=== PATIENT | female | born 1945 | race Caucasian/White ===

== ENCOUNTER 2017-07-28 19:59 | Emergency (ER) | payer OTHER ==
[~2017-07-28] VITALS: Ht 162.6 cm; Wt 75.8 kg
[~2017-07-28 19:59] MED LIST: CELEXA10 MG; DAILY MULTIVIT1 EAC1 PO; IMODIUM ADVANC1 EAC1 PO; NAPROSYN500 MG PO; PHENERGAN 25 MG25 MG PO; PRAVACHOL20 MG; RELAFEN500 MG PO; VALIUM5 MG PO
[2017-07-28] MEDS ORDERED: IMBRUVICA140 MG PO (20:07)
[2017-07-28] MEDS ORDERED: PRIMIDONE50 MG PO (20:07)
[2017-07-28] MEDS ORDERED: SYNTHROID50 MCG PO (20:08)
[2017-07-28] MEDS ORDERED: VIBRAMYCIN 100100 M2 PO (21:00)
[2017-07-28 21:10] VITALS: BP 131/64
== END 2017-07-28 21:12 | disposition home or self-care (01) ==
LOC: ER 19:59
DX: S01.21XA Laceration without foreign body of nose, initial encounter (principal); S40.022A Contusion of left upper arm, initial encounter; S40.021A Contusion of right upper arm, initial encounter; C85.90 Non-Hodgkin lymphoma, unspecified, unspecified site; M19.90 Unspecified osteoarthritis, unspecified site; Z88.0 Allergy status to penicillin; Z88.1 Allergy status to other antibiotic agents; Z88.2 Allergy status to sulfonamides; W19.XXXA Unspecified fall, initial encounter; Y93.89 Activity, other specified; Y92.89 Other specified places as the place of occurrence of the external cause; Y99.8 Other external cause status

== ENCOUNTER 2018-04-30 11:18 | Inpatient (IN) | payer OTHER ==
[~2018-04-30] VITALS: Ht 162.6 cm; Wt 78.9 kg
--- NOTE | ~2018-04-30 | 2DMMODE ---
[facility] [address] [place] [address] 2 D/M-MODE ECHOCARDIOGRAM Name: ALICIA CONWAY Room #: 353-P [facility] IN .R.#: [id number] Admission: 04/30/18 Attend Phys: Alton Saab MD Discharge: Date of : 45 Date of Service: 05/01/18 1151 Report #: [id number] THIS REPORT FOR: //name// APPROVED REPORT Study performed: 05/01/2018 09:15:33 EXAM: Comprehensive 2D, Doppler, and color-flow Echocardiogram Patient Location: Echo lab Room #: [facility] Status: routine BSA: 1.84 HR: 51 bpm BP: 127/58 mmHg Other Information Study Quality: Adequate Indications Bradycardia Syncope 2D Dimensions RVDd: 27.13 mm LVEF(%): 66.41 (>50%) IVSd: 9.43 (7-11mm) LVOT Diam: 18.90 (18-24mm) LVDd: 51.15 mm PWd: 9.53 (7-11mm) LVDs: 32.30 (25-40mm) Aortic Root: 28.40 mm IVC: 7.00 mm Velazquez's LVEF: 66.41 % Volumes Left Atrial Volume (Systole) Single Plane 4CH: 43.01 mL Single Plane 2CH: 26.90 mL LA ESV Index: 20.00 mL/m2 Aortic Valve AoV Peak Jayden.: 1.54 m/s AO Peak Gr.: 9.46 mmHg LVOT Max P.07 mmHg LVOT Max V: 1.13 m/s ANGELICA Vmax: 2.05 cm2 Mitral Valve E/A Ratio: 1.4 MV Decel. Time: 216.11 ms [facility] [address] [place] [address] 2 D/M-MODE ECHOCARDIOGRAM Name: ALICIA CONWAY Room #: 353-P [facility] IN ..#: [id number] Admission: 04/30/18 Attend Phys: Alton Saab MD Discharge: Date of : 45 Date of Service: 05/01/18 1151 Report #: [id number] MV E Max Jayden.: 0.88 m/s MV A Jayden.: 0.65 m/s MV PHT: 62.67 ms IVRT: 92.27 ms Pulmonary Valve PV Peak Jayden.: 0.81 m/s PV Peak Gr.: 2.63 mmHg Pulmonary Vein P Vein S: 0.57 m/s P Vein A: 0.28 m/s P Vein D: 0.42 m/s P Vein A Dur.: 101.5 msec P Vein S/D Ratio: 1.36 Tricuspid Valve TR Peak Jayden.: 2.78 m/s RAP Estimate: 5.00 mmHg TR Peak Gr.: 30.92 mmHg PA Pressure: 36.00 mmHg Left Ventricle The left ventricle is normal size. There is normal LV segmental wall motion. There is normal left ventricular wall thickness. The left ventricular systolic function is normal. The left ventricular ejection fraction is within the normal range. LVEF is 55-60%. Moderate diastolic dysfunction is present (pseudonormal filling). Right Ventricle The right ventricle is normal size. The right ventricular systolic function is normal. Atria The left atrium size is normal. The right atrium size is normal. Aortic Valve The aortic valve is normal in structure. No aortic regurgitation is present. There is no aortic valvular stenosis. Mitral Valve Moderate mitral annular calcification Trace mitral regurgitation. No evidence of mitral valve stenosis. Tricuspid Valve The tricuspid valve is normal in structure. Trace tricuspid regurgitation. PAP is estimated at [address] [address] 2 D/M-MODE ECHOCARDIOGRAM Name: ALICIA CONWAY Room #: 353-P [facility] IN [facility]#: [id number] Admission: 04/30/18 Attend Phys: Alton Saab MD Discharge: Date of : 45 Date of Service: 05/01/18 1151 Report #: [id number] Pulmonic Valve Pulmonic valve is not well visualized. Trace to mild pulmonic regurgitation. Great Vessels The aortic root is normal in size. IVC is normal in size and collapses >50% with inspiration. Pericardium There is no pericardial effusion. <Conclusion> The left ventricular systolic function is normal. There is normal LV segmental wall motion. LVEF 55-60%. The aortic valve is normal in structure. No aortic regurgitation or stenosis Moderate mitral annular calcification Trace mitral regurgitation. Trace tricuspid regurgitation. Pulomonary artery pressure estimated at 36 mmHg. There is no pericardial effusion. <ELECTRONICALLY SIGNED> By: Musa Bucio MD, FACC 05/01/18 1151 1151 1151 Musa Bucio MD, FACC /INF
--- NOTE | ~2018-04-30 | EKG ---
[address] [employer] [address] ELECTROCARDIOGRAM REPORT Name: ALICIA CONWAY Room #: 353-P ADM IN M.R.#: [id number] Admission: 04/30/18 Attend Phys: Alton Saab MD Discharge: Date of : 45 Report #: [id number] THIS REPORT FOR: //name// [facility] Test Date: 2018-05-01 Test Time: 08:04:58 Pat Name: ALICIA CONWAY Department: Room: 353 P Gender: F Classified Ad Taker: SEDRICK : 1945 Requested By: Musa Bucio Order Number: [id number] MD: Musa Bucio Measurements Intervals [place] Rate: 53 P: 67 PA: 159 QRS: 15 QRSD: 92 T: 12 QT: 464 QTc: 436 Interpretive Statements Sinus bradycardia Low voltage, extremity leads Compared to ECG 04/30/2018 11:34:53 No significant change was found Electronically Signed On 05-01-2018 9:15:33 CDT by Musa Bucio [email or web address] <ELECTRONICALLY SIGNED> By: Musa Bucio MD, [facility] 05/01/18 0915 3 3 Musa Bucio MD, [facility] /EPI
--- NOTE | ~2018-04-30 | EKG ---
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
--- NOTE | ~2018-04-30 | EXE ---
[facility] [address] [place] [address] STRESS ECHOCARDIOGRAM Name: ZORAIDAALICIA Room #: 353-P [facility] IN .R.#: [id number] Admission: 04/30/18 Attend Phys: Alton Saab MD Discharge: Date of : 45 Date of Service: 05/01/18 1210 Report #: [id number] THIS REPORT FOR: //name// APPROVED REPORT Study performed: 05/01/2018 09:57:16 Exam: Stress Echocardiogram Indication: Syncope, bradycardia Patient Location: Echo lab Stress Nurse: Zoya Gonzalez RN Room #: 353 Status: routine Ht: 5 ft 4 in HR: 51 bpm BP: 127/58 mmHg Rhythm: Bradycardia Medical History Medical History: Hyperlipidemia Cardiac Risk Factors: Hyperlipidemia Procedure The patient underwent an Exercise Stress Test using the Rohan Protocol. Blood pressure, heart rate, and EKG were monitored. An Echocardiogram was performed by field operations technician in four stages in quad fashion. At peak stress, four selected images were obtained and placed side by side with resting images for comparison. Stress Test Details Stress Test: Exercise stress testing was performed using a Rohan protocol. HR Resting HR: 54 bpm Max Heart Rate (APMHR): 148 bpm Max HR Achieved: 111 bpm Target HR (85% APMHR): 125 bpm % of APMHR: 75 Recovery HR: 58 bpm HR response to stress: Normal HR response to stress BP Resting BP: 127/58 mmHg Max BP: 142/70 mmHg Recovery BP: 126/68 mmHg ECG [facility] [address] [place] [place] [address] STRESS ECHOCARDIOGRAM Name: BRIDGET CONWAYHUGO Pérez Room #: 353-P [facility] IN [facility]#: [id number] Admission: 04/30/18 Attend Phys: Alton Saab MD Discharge: Date of : 45 Date of Service: 05/01/18 1210 Report #: [id number] Resting ECG: Sinus Bradycardia Stress ECG: Sinus Rhythm ST Change: Normal Maximum ST Deviation: 0 mm Arrhythmia: None Recovery ECG: Sinus Rhythm Recovery ST Change: Normal Recovery ST Deviation: 0 mm Recovery Arrhythmia: None Clinical Reason for Termination: Maximal effort, Dizziness Stress Symptoms: Leg Fatigue, Weakness Exercise duration: 4 min 36 sec Highest Stage Achieved: Stage 2: 2.5 mph at 12% grade. Exercise capacity: 7.00 METs Angina Score: None Stress ECG Conclusion ECG: Non-ischemic Clinical: Non-ischemic Caceres Treadmill Score is 4.0 which is Moderate risk. Pre-Stress Echo The resting Echocardiogram showed normal left ventricular contractility with an estimated Ejection Fraction of about 55-60%. Post-Stress Echo The stress Echocardiogram showed normal left ventricular contractility with an estimated Ejection Fraction of about 65-70%. Conclusion Clinical Response: Non-ischemic Exercise Capacity: Below Average Stress ECG Response: Non-ischemic Stress Echo Images: Non-ischemic Normal stress echocardiogram with submaximal exercise stress. Other Information Study Quality: Adequate Technically limited study due to patient unable to reach max heart rate. [facility] [address] [place] [address] STRESS ECHOCARDIOGRAM Name: ALICIA CONWAY Elisa Room #: 353-P [facility] IN ..#: [id number] Admission: 04/30/18 Attend Phys: Alton Saab MD Discharge: Date of : 45 Date of Service: 05/01/181209 Report #: [id number] <Conclusion> Normal stress echocardiogram with submaximal exercise stress. <ELECTRONICALLY SIGNED> By: Musa Bucio MD, FACC 05/01/181209 09 09 Musa Bucio MD, FACC /INF
--- NOTE | ~2018-04-30 | HC ---
[facility] [place] [address] CONSULTATION Name: ALICIA CONWAY Room #: 353-P [facility] IN .R.#: [id number] Admission: 04/30/18 Attend Phys: Alton Saab MD Discharge: Date of : 45 Report #: [id number] THIS REPORT FOR: //name// CC: Alton BURNETT REASON FOR CONSULTATION: Syncope. HISTORY OF PRESENT ILLNESS: The patient is a 72-year-old woman with history of follicular non-Hodgkin's lymphoma diagnosed in 1997. Her history is otherwise fairly unremarkable. For the past 2 months, she has had exertional breathlessness with minimal activities such as carrying groceries from her car into the house. She denies orthopnea or paroxysmal nocturnal dyspnea. Today while standing at synagogue, she became lightheaded. She sat down and became profusely diaphoretic and near syncopal. She was laid flat. Her reports that she did not lose consciousness, although when she aroused there are people standing around her with cold compresses on her forehead. When she presented in the Emergency Department, she was bradycardic, sinus mechanism at 45. Hemodynamics were stable. She had one syncopal episode many years ago in the setting of influenza. She denies chest heaviness or pressure. No history of palpitations. ALLERGIES: Include CEPHALEXIN, PENICILLIN, SULFA and DEMEROL. She has intolerance to PREDNISONE. MEDICATIONS: Include primidone 50 mg daily, levothyroxine 50 mcg daily, citalopram and pravastatin 20 mg daily. PAST MEDICAL HISTORY: Her past history and medical records have been reviewed and include a history of non-Hodgkin's lymphoma originally treated with CHOP chemotherapy in 1997. She had recurrence in August of 2016 and received Rituxan and she had another recurrence in December of 2016 and she received another chemotherapy agent, which also became ineffective. She has a history of a ganglion cyst excision, tubal with exploratory surgery and hypothyroidism. SOCIAL HISTORY: She is . She is a nonsmoker and nondrinker. FAMILY HISTORY: Unremarkable for premature coronary disease. REVIEW OF SYSTEMS: All systems negative except as that noted above. PHYSICAL EXAMINATION: GENERAL: Reveals a pleasant woman, in no distress. VITAL SIGNS: Blood pressure is 128/65, heart rate of 53 and regular, she is afebrile, 5 feet 4 inches tall and 174 pounds. HEENT: There are neither xanthelasma, subcutaneous xanthomata, oral mucosa or [facility] [address] [place] [address] CONSULTATION Name: ALICIA CONWAY Room #: 353-P [facility] IN [facility]#: [id number] Admission: 04/30/18 Attend Phys: Alton Saab MD Discharge: Date of : 45 Report #: [id number] digital cyanosis or kyphoscoliosis present. CHEST: Clear to auscultation and percussion. CARDIOVASCULAR: Reveals regular rate and rhythm with normal S1 and S2. No murmurs or rubs. ABDOMEN: Soft and nontender. EXTREMITIES: Without cyanosis, clubbing or edema. Radial pulses are 2+. NEUROLOGICAL: She is alert with a nonfocal exam. LABORATORY DATA: Sodium 140, potassium 3.5 and creatinine 1.1. Troponin of 0. White count 6.3, hemoglobin 12, hematocrit 36 and platelet count 161. Thyroid function studies are normal. RADIOLOGICAL DATA: Chest x-ray is normal. Head CT is normal. EKG, sinus bradycardia with poor R-wave progression. IMPRESSION: 1. Near syncope. 2. Bradycardia, possibly contributing to near syncope above. 3. Follicular non-Hodgkin's lymphoma. 4. Hypothyroidism, on replacement. RECOMMENDATIONS: 1. Echocardiogram with Doppler, stress testing. 2. Electrophysiologic evaluation. I suspect that her symptoms were on the basis of symptomatic bradycardia, permanent pacing may be needed. I have discussed these issues with the patient and her . Alternatively, this could have been a neurocardiogenic process. Thank you for asking me to participate in her care. <ELECTRONICALLY SIGNED> By: Musa Bucio MD, [facility] 05/01/18 0902 180 022 Musa Bucio MD, [facility] /nt
--- NOTE | ~2018-04-30 | HC ---
[facility] [address] CONSULTATION Name: ALICIA CONWAY Room #: 353-P [facility] IN ..#: [id number] Admission: 04/30/18 Attend Phys: Alton Saab MD Discharge: 05/01/18 Date of : 45 Report #: [id number] THIS REPORT FOR: //name// CC: Alton BURNETT ELECTROPHYSIOLOGY CONSULTATION REASON FOR CONSULTATION: Near syncope and bradycardia. HISTORY OF PRESENT ILLNESS: The patient is a 72-year-old with no cardiac history who was at synagogue yesterday and was feeling lightheaded. She then decided that she needed to go home, but before she could she got more lightheaded, diaphoretic and had to lie down and nearly passed out, but did not truly have a syncopal episode. She was brought to the ER for further evaluation and a resting EKG showed that she had sinus bradycardia in the 50s. She denies any problems with chest pain or chest tightness. She denies any PND or orthopnea. She denies any recent syncopal episodes other than several years ago, she had nausea, vomiting, diarrhea and then passed out and she was seen in the Emergency Room and diagnosed with dehydration. REVIEW OF SYSTEMS: A 12-point review of systems was performed and is negative other than what I mentioned above. PAST MEDICAL HISTORY: As above. SOCIAL HISTORY: Does not smoke. FAMILY HISTORY: Noncontributory. ALLERGIES: PENICILLIN AND MULTIPLE ANTIBIOTICS. MEDICATIONS: Have been reviewed. PHYSICAL EXAMINATION: VITAL SIGNS: Temperature is 36.6, pulse 61, respiratory rate 14, blood pressure 146/74 and sat 98%. GENERAL: She is in no acute distress. HEENT: Oropharynx is clear. NECK: Supple with no thyromegaly. CARDIOVASCULAR: Heart is regular rate and rhythm with no murmurs, rubs or gallops. LUNGS: Clear to auscultation bilaterally. ABDOMEN: Soft, nontender and nondistended with no hepatosplenomegaly. EXTREMITIES: Shows no clubbing, cyanosis or edema. NEUROLOGIC: Cranial nerves 2-12 are intact. [facility] [address] [place] [address] CONSULTATION Name: ALICIA CONWAY Room #: 353-P [facility] IN [facility].#: [id number] Admission: 04/30/18 Attend Phys: Alton Saab MD Discharge: 05/01/18 Date of : 45 Report #: [id number] LABORATORY DATA: Creatinine is 1.1. CBC is essentially unremarkable. Troponin was negative. Chest x-ray showed no acute process. Telemetry showed periods of sinus bradycardia while sleeping. CT head showed no acute process and she had a stress echo today, which demonstrates that she was able to get her maximal heart rate to 110 beats per minute and she had normal LV size and function with no evidence of ischemia. ASSESSMENT AND PLAN: 1. Sinus bradycardia. 2. Presyncope/syncope. In summary, the patient is a 72-year-old who presented with a near syncopal episode. There was some sinus bradycardia noted. It is unclear if this truly is an issue. The fact that she was able to augment her heart rate on her treadmill stress test makes me think that a pacemaker is currently not warranted. I have recommended that she follow up with Dr. Bucio as an outpatient and to have her undergo monitoring for a month. If this shows no further episodes, then we could consider implantation of an implantable loop recorder given her prior syncopal episodes in the past. If any of these monitors reveals any underlying arrhythmias, I will be happy to see her again for a possible pacemaker implantation. By: 1545 0116 Nikhil Almazan MD /nt
[~2018-04-30 11:18] MED LIST changes: +IMBRUVICA140 MG PO; +PRIMIDONE50 MG PO; +SYNTHROID50 MCG PO; +VIBRAMYCIN 100100 M2 PO
[2018-04-30 11:19] VITALS: BP 110/26
[2018-04-30 11:51] LABS: ABSOLUTE NEUTROPHILS 3.6 thou/uL (1.4-8.2); BASOPHILS 0.7 % (0.0-2.0); EOSINOPHILS 3.1 % (0.0-3.0); HEMATOCRIT 36.8 % (37.0-47.0); HEMOGLOBIN 12.7 gm/dL (12.0-15.0); LYMPHOCYTES 29.4 % (24.0-44.0); MCH 30.6 pg (26.0-34.0); MCHC 34.6 g/dL (28.0-37.0); MCV 88.5 fL (80.0-100.0); PLATELET COUNT 161 thou/uL (150-400); POLYS 57.8 % (36.0-66.0); RBC 4.16 mil/uL (4.20-5.00); RDW 14.5 % (10.5-14.5); WBC 6.3 thou/uL (4.0-11.0)
[2018-04-30 11:52] LABS: ANION GAP 8 mmol/L (7-16); BUN 23 mg/dL (7-18); CALCIUM 8.8 mg/dL (8.5-10.1); CHLORIDE 104 mmol/L (98-107); CO2 28 mmol/L (21-32); CREATININE 1.1 mg/dL (0.6-1.0); GLUCOSE 119 mg/dL (74-106); POTASSIUM 3.5 mmol/L (3.5-5.1); SODIUM 140 mmol/L (136-145)
[2018-04-30 12:00] LABS: ALBUMIN 3.4 g/dL (3.4-5.0); SGOT 23 U/L (15-37); SGPT 33 U/L (30-65); TOTAL BILIRUBIN 0.3 mg/dL (<0.1-1.0); TOTAL PROTEIN 6.1 g/dL (6.4-8.2); TROPONIN-I <0.06 ng/mL (<0.06)
[2018-04-30 12:24] LABS: URINE BILIRUBIN NEGATIVE (Negative); URINE BLOOD NEGATIVE (Negative); URINE CLARITY CLEAR; URINE COLOR YELLOW; URINE GLUCOSE-RANDOM* NEGATIVE (Negative); URINE KETONES NEGATIVE (Negative); URINE PROTEIN (DIPSTICK) TRACE (Negative); URINE SPECIFIC GRAVITY 1.015 (1.005-1.035); URINE UROBILINOGEN 0.2 E.U./dl (0.2-1.0)
[2018-04-30 12:36] LABS: URINE LEUKOCYTES-REFLEX 2+ (Negative); URINE NITRITE-REFLEX POSITIVE (Negative)
[2018-04-30 12:51] LABS: SQUAMOUS 0-3 Few /LPF (0-3); URINE RBC 0-2 Rare /HPF (0-2); URINE WBC-REFLEX >25 Many /HPF (0-5)
[2018-04-30 12:52] LABS: AMORPHOUS PHOSPHATES Moderate /LPF (None Seen); HYALINE CASTS 0-3 Few /LPF (None Seen)
[2018-04-30 13:37] VITALS: BP 121/55
[2018-04-30 13:45] VITALS: BP 140/66
[2018-04-30 15:35] VITALS: BP 128/65
[2018-04-30 21:10] VITALS: BP 110/59
[2018-04-30 23:30] VITALS: BP 132/66
[2018-05-01 04:34] VITALS: BP 132/71
[2018-05-01 06:40] LABS: HEMATOCRIT 35.5 % (37.0-47.0); HEMOGLOBIN 12.2 gm/dL (12.0-15.0); MCH 30.6 pg (26.0-34.0); MCHC 34.3 g/dL (28.0-37.0); MCV 89.1 fL (80.0-100.0); RBC 3.98 mil/uL (4.20-5.00); RDW 14.7 % (10.5-14.5); WBC 5.4 thou/uL (4.0-11.0)
[2018-05-01 07:04] LABS: CALCIUM 8.7 mg/dL (8.5-10.1); CREATININE 1.1 mg/dL (0.6-1.0); POTASSIUM 4.2 mmol/L (3.5-5.1)
[2018-05-01 07:47] VITALS: BP 127/58
[2018-05-01 15:35] VITALS: BP 125/62
[2018-05-01 15:36] VITALS: BP 139/79
[2018-05-01 15:39] VITALS: BP 146/74
[2018-05-01] MEDS ORDERED: KEFLEX500 M1 PO (16:32)
[2018-05-01 16:44] VITALS: BP 146/74
== END 2018-05-01 18:07 | disposition home or self-care (01) | DRG 309 ==
LOC: ER 11:18 → 3W 13:17 → EROBS 13:17 → 3W 15:16 → ENTRNSPT 05-01 18:05 → 3W 05-01 18:07
PROVIDERS: Hospitalist; Student in an Organized Health Care Education/Training Program
DX: R00.1 Bradycardia, unspecified (principal); N39.0 Urinary tract infection, site not specified; E03.9 Hypothyroidism, unspecified; I10 Essential (primary) hypertension; F32.9 Major depressive disorder, single episode, unspecified; M19.90 Unspecified osteoarthritis, unspecified site; Z85.72 Personal history of non-Hodgkin lymphomas; Z79.899 Other long term (current) drug therapy; Z88.0 Allergy status to penicillin; Z88.2 Allergy status to sulfonamides; Z88.8 Allergy status to other drugs, medicaments and biological substances
CPT/HCPCS: 10879

== ENCOUNTER → 2018-12-06 | Outpatient (CLI) | payer OTHER ==
[~2018-12-06] MED LIST changes: +KEFLEX500 M1 PO
--- NOTE | ~2018-12-06 | CATHLAB ---
[facility] [address] [place] [address] INVASIVE PROCEDURE REPORT Name: ALICIA CONWAY Room #: REG [facility]#: [id number] ������������� Admission: 12/06/18 ������������� Attend Phys: Musa Bucio, Discharge: ��� ������������� ��� Date of : 45 Date of Service: 12/06/18 0858 �� Report #: [id number] �������� ��������������������������������������������[id number] THIS REPORT FOR: //name// CC: Musa Bucio FAM unknown BOO BURNETT DATE OF SERVICE: 12/06/2018 IMPLANTABLE LOOP RECORDER: INDICATION: Recurrent syncope, palpitations. DESCRIPTION OF PROCEDURE: The potential benefits and risks of the procedure were discussed at length with the patient who understood. Full written and informed consent was obtained. The patient was brought into the catheterization holding area where her left anterior chest was prepped and draped in a sterile fashion. A 1 cm incision was made over the left fourth intercostal space with placement of a [employer] Confirm Rx [id number] loop recorder, serial #[id number]. The small incision was closed with a single bioabsorbable stitch. A dressing was placed. She tolerated the procedure well. Interrogation of the device demonstrated excellent thresholds. IMPRESSION: Successful [employer] implantable loop recorder for history of recurrent syncope. ��������������������������������������������� ���������������������������������������� By: ��������������������������������������������� 0858 2219 Musa Bucio MD, FACC /nt
== END | disposition home or self-care (01) ==
LOC: CATH 11-21 07:07
DX: R55 Syncope and collapse (principal); R00.2 Palpitations

== ENCOUNTER → 2021-03-02 | Outpatient (CLI) | payer OTHER | LOC: SJCVC 13:00 | PROVIDERS: ATTEND Internal Medicine | DX: R55 Syncope and collapse (principal); E78.5 Hyperlipidemia, unspecified; C82.90 Follicular lymphoma, unspecified, unspecified site; F41.9 Anxiety disorder, unspecified; F32.9 Major depressive disorder, single episode, unspecified; E03.9 Hypothyroidism, unspecified; E78.00 Pure hypercholesterolemia, unspecified; Z72.89 Other problems related to lifestyle; Z79.899 Other long term (current) drug therapy; Z88.0 Allergy status to penicillin; Z88.1 Allergy status to other antibiotic agents; Z88.5 Allergy status to narcotic agent; Z88.2 Allergy status to sulfonamides; Z88.8 Allergy status to other drugs, medicaments and biological substances ==

== ENCOUNTER → 2021-03-27 | Outpatient (CLI) | payer OTHER ==
[2021-03-27 08:50] VITALS: BP 135/71
--- NOTE | 2021-03-28 19:08 | CATHLAB ---
[facility] [place] [address] INVASIVE PROCEDURE REPORT Name: ALICIA CONWAY Room #: REG [facility].#: [id number] Admission: 03/27/21 Attend Phys: Musa Bucio MD, Discharge: Date of : 45 Report #: [id number] THIS REPORT FOR: cc: FAM - Family physician unknown FAM - Family physician unknown Musa Bucio MD [facility] ~ DATE OF SERVICE: 03/27/2021 PROCEDURE: LINQ removal. INDICATION: End of life. DESCRIPTION OF PROCEDURE: The left anterior chest was prepped and draped in a sterile fashion. 1% Xylocaine was used as local anesthetic. A 0.5 cm incision was made over the LINQ loop recorder, which was then removed through the incision, closed with a bioabsorbable stitch. The lesion was covered with a sterile Band-Aid. She tolerated the procedure well and was discharged to home. <ELECTRONICALLY SIGNED> By: Musa Bucio MD, FACC 03/28/21 1908 1529 2343 Musa Bucio MD, FACC /nt
== END | disposition home or self-care (01) ==
LOC: CATH 07:53
PROVIDERS: ATTEND Internal Medicine
DX: Z45.09 Encounter for adjustment and management of other cardiac device (principal); Z88.0 Allergy status to penicillin; Z88.2 Allergy status to sulfonamides; Z88.8 Allergy status to other drugs, medicaments and biological substances

== ENCOUNTER 2021-08-12 00:34 | Emergency (ER) | payer OTHER ==
[~2021-08-12] VITALS: Ht 165.1 cm; Wt 74.8 kg
--- NOTE | ~2021-08-12 | EMS ---
[address] [address] EMS Patient Care Report Name: ALICIA CONWAY Room #: [facility] M.R.#: [id number] Admission: Attend Phys: Discharge: Date of : 45 Report #: [id number] THIS REPORT FOR: //name// Report Transmitted: 08/12/2021 01:00 EMS Care Summary [place], [place]/[facility] Incident [id number] @ 08/11/2021 23:45 Incident Location [address] [place] [address] Patient ALICIA VIERA Female, 75 Years 1945 Patient Address [address] [place] [address] Patient History Other,Hyperlipidemia,Bronchitis Chronic,Depression,Hypothyroidism,Tremors, Patient Allergies Penicillin allergy,Sulfa,Keflex,Demerol, Chief Complaint cough Disposition Transported No Lights/[place] Reason Breathing Problem Transported To [facility] Narrative pt found lying on bedroom floor, a&o, incontinent of urine. she states she was too weakn to be able to make it to door to unlock. pt c/o having cough, sore throat, low grade fever, weakness , dizziness and general body pain for past 48 hrs. pt has had Covid shots but not Flu shot. pt req transport to [facility]. pt to catrachita gum remover and carried out to cot. transport w/o change. report to staff on arrival. [address] [place] [address] EMS Patient Care Report Name: ALICIA CONWAY Room #: PRE M.R.#: [id number] Admission: Attend Phys: Discharge: Date of : 45 Report #: [id number] Initial Vitals @00:13P: 68,R: 18,BP: 124/63,Pain: 6/10,GCS: 15,Temp: 98.9F,SpO2: 93,Revised Trauma: 12, Assessments @00:01MENTAL:No Abnormalities,SKIN:Other,HEENT:Head/Face: Other,Neck/Airway: Other,LUNG SOUNDS:ABDOMEN:PELVIS//GI:Incontinence,EXTREMITIES:PULSE:NEURO: Impression Infectious Disease Procedures @00:01 ALS Assessment Response: Unchanged @00:10 Stretcher Response: Unchanged Timeline 23:44,Dispatch Notified 23:45,Dispatched 23:47,En Route 23:57,On Scene 00:01,At Patient 00:01,ALS Assessment,Response: Unchanged 00:10,Stretcher,Response: Unchanged 00:13,BP: 124/63 M,PULSE: 68,RR: 18 R,SPO2: 93 Ox,ETCO2: ,BG: ,PAIN: 6,GCS: 15, 00:15,Depart Scene 00:28,At Destination 00:48,Call Closed 23:44,Call Received Disclaimer v1.1 Copyright 2020 [employer] This EMS Care Summary contains data elements from the applicable legal record (which may be displayed differently). It is designed to provide pertinent information for the following purposes: continuity of care, clinical quality, and state data reporting. The complete legal record is available to ED staff and administrators of the receiving hospital in ES's Patient Tracker. All data is provided "as is."
[2021-08-12 01:55] LABS: ABSOLUTE NEUTROPHILS 4.1 thou/uL (1.4-8.2); BASOPHILS 0.3 % (0.0-2.0); EOSINOPHILS 1.1 % (0.0-3.0); HEMATOCRIT 40.8 % (37.0-47.0); HEMOGLOBIN 13.4 gm/dL (12.0-15.0); LYMPHOCYTES 10.2 % (24.0-44.0); MCH 29.9 pg (26.0-34.0); MCHC 32.9 g/dL (28.0-37.0); MONOCYTES 10.2 % (1.0-8.0); PLATELET COUNT 149 thou/uL (150-400); POLYS 78.2 % (36.0-66.0); RBC 4.48 mil/uL (4.20-5.00); RDW 13.2 % (10.5-14.5); WBC 5.2 thou/uL (4.0-11.0)
[2021-08-12 01:56] LABS: URINE BILIRUBIN NEGATIVE (Negative); URINE BLOOD NEGATIVE (Negative); URINE CLARITY CLEAR; URINE COLOR YELLOW; URINE GLUCOSE-RANDOM* NEGATIVE (Negative); URINE KETONES 1+ (Negative); URINE LEUKOCYTES-REFLEX NEGATIVE (Negative); URINE NITRITE-REFLEX NEGATIVE (Negative); URINE PROTEIN (DIPSTICK) NEGATIVE (Negative); URINE UROBILINOGEN 0.2 E.U./dl (0.2-1.0)
[2021-08-12 02:02] LABS: CALCIUM 9.1 mg/dL (8.5-10.1); CREATININE 1.1 mg/dL (0.6-1.0)
[2021-08-12 02:12] LABS: ALBUMIN 3.5 g/dL (3.4-5.0); TOTAL BILIRUBIN 0.3 mg/dL (0.2-1.0); TOTAL PROTEIN 7.3 g/dL (6.4-8.2)
[2021-08-12] MEDS ORDERED: TESSALON PERLE100 MG PO (03:36)
[2021-08-12] MEDS ORDERED: ZOFRAN ODT4 MG PO (03:36)
[2021-08-12 04:07] VITALS: BP 120/57
--- NOTE | 2021-08-12 08:52 | EKG ---
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: : 1945 Requested By: Naseem Herzog Order Number: [id number] MD: Musa Bucio Measurements Intervals [place] Rate: 69 P: 75 CA: 155 QRS: 8 QRSD: 98 T: 18 QT: 414 QTc: 444 Interpretive Statements Sinus rhythm Low voltage, extremity and precordial leads Compared to ECG 05/01/2018 08:04:58 Sinus bradycardia no longer present Electronically Signed On 08-12-2021 8:52:08 TERRAZZO FINISHER HELPER by Musa Bucio [email or web address] <ELECTRONICALLY SIGNED> By: Musa Bucio MD, [facility] 08/12/21 0852 012 0121 Musa Bucio MD, FACC /EPI
== END 2021-08-12 05:58 | disposition home or self-care (01) ==
LOC: ER 00:34
PROVIDERS: Emergency Medicine
DX: U07.1 COVID-19 (principal); M19.91 Primary osteoarthritis, unspecified site; Z79.891 Long term (current) use of opiate analgesic; Z79.899 Other long term (current) drug therapy; Z79.1 Long term (current) use of non-steroidal anti-inflammatories (NSAID); Z88.0 Allergy status to penicillin; Z88.1 Allergy status to other antibiotic agents; Z88.2 Allergy status to sulfonamides; Z88.8 Allergy status to other drugs, medicaments and biological substances

== ENCOUNTER 2021-08-17 12:18 | Inpatient (IN) | payer OTHER ==
[~2021-08-17] VITALS: Ht 152.4 cm; Wt 78.5 kg
--- NOTE | ~2021-08-17 | EMS ---
[address] [address] EMS Patient Care Report Name: ALICIA CONWAY Room #: 358-P ADM IN M.R.#: [id number] Admission: 08/17/21 Attend Phys: Akhil Melogza MD Discharge: Date of : 45 Report #: [id number] THIS REPORT FOR: //name// Report Transmitted: 08/21/2021 14:09 EMS Care Summary [place], [place]/[facility] Incident [id number] @ 08/17/2021 11:28 Incident Location [address] [place], [place] [id number] Patient ALICIA CONWAY Female, 76 Years 1945 Patient Address [address] [place], [place] [id number] Patient History None Reported, Patient Allergies No known allergies, Patient Medications None Reported, Chief Complaint respiratorry distress. Disposition Transported No Lights/[place] Dispatch Reason Sick Person Transported To [facility] Narrative Dispatched to an apartment community in regards to a respiratory distress. On arrival, I saw patient with the on scene fire crew. Initial assessment revealed that patient was A&Ox4 and did not appear to be in respiratory distress. Patient's chief complaint was general malaise and weakness. stated that [address] [address] EMS Patient Care Report Name: ALICIA CONWAY Room #: 358-P ADM IN [facility]#: [id number] Admission: 08/17/21 Attend Phys: Akhil Melgoza MD Discharge: Date of : 45 Report #: [id number] patient was fine before taking a shower earlier and during taking a shower she ended up on the floor in the bathroom and is unable to speak or move on her own. Patient was able to obey verbal commands but did not verbally respond. Spouse stated that she has had these episodes prior with various reasons given for this behavior. Spouse also stated that patient tested positive for Covid within the last 8 days. Physical assessment revealed that patient was pink warm and dry. Patient was assisted to our cot. Patient was secured and lifted into the ambulance. Treatment rendered was obtaining a complete set of baseline vital signs. Patient was transported to and radio report was given en route. Patient care was transferred on arrival. Initial Vitals @12:02P: 58,R: 16,BP: 121/72,Pain: 0/10,GCS: 11,Glucose: 138,SpO2: 92,Revised Trauma: 11,GA Suspected: false @12:05P: 16,R: 16,BP: 113/58,Pain: 0/10,GCS: 11,SpO2: 94,Revised Trauma: 11, Assessments @11:59MENTAL:Other,SKIN:HEENT:LUNG SOUNDS:ABDOMEN:PELVIS//GI:EXTREMITIES:PULSE:NEURO: Impression Acute Respiratory Distress (Dyspnea) Procedures @11:59 ALS Assessment Timeline :,Call Received 11:26,Dispatch Notified 11:28,Dispatched 11:28,En Route 11:51,On Scene 11:52,At Patient 11:58,Depart Scene 11:59,ALS Assessment, 12:02,BP: 121/72 M,PULSE: 58,RR: 16 R,SPO2: 92 Ox,ETCO2: ,B,PAIN: 0,GCS: 11, 12:05,BP: 113/58 M,PULSE: 16,RR: 16 R,SPO2: 94 Ox,ETCO2: ,BG: ,PAIN: 0,GCS: 11, 12:23,At Destination 12:23,Call Closed Disclaimer v1.1 Copyright 2020 [employer] This EMS Care Summary contains data elements from the applicable legal record (which may be displayed differently). It is designed to provide pertinent [address] [address] EMS Patient Care Report Name: ALICIA CONWAY Room #: 358-P ADM IN .R.#: [id number] Admission: 08/17/21 Attend Phys: Akhil Melgoza MD Discharge: Date of : 45 Report #: [id number] information for the following purposes: continuity of care, clinical quality, and state data reporting. The complete legal record is available to ED staff and administrators of the receiving hospital in ES's Patient Tracker. All data is provided "as is."
--- NOTE | ~2021-08-17 | HC ---
[facility] [place] [address] CONSULTATION Name: ALICIA CONWAY Room #: 170-10 ADM IN .R.#: [id number] Admission: 08/17/21 Attend Phys: Akhil Melgoza MD Discharge: Date of : 45 Report #: [id number] THIS REPORT FOR: cc: [facility] - Clinic physician unknown [facility] - Clinic physician unknown Manohar Wiseman MD ~ DATE OF SERVICE: 08/18/2021 HISTORY OF PRESENT ILLNESS: This is a 76-year-old female patient who was evaluated by me because the patient had an episode where she was fully conscious, but she will not talk. She was able to comprehend everything, but she just will not talk. I talked to nurse practitionerSara yesterday. I talked to Dr. Melgoza yesterday and today. I gave a call to the patient's daughter and subsequently was able to reach the patient's and I talked to them. The patient has had these episodes for some time. She basically stopped talking and after that, she started snoring. She had an episode 3 years ago. She has never fallen where she hurt herself. There is no tonic-clonic activity, does not look like that episodes are very frequently, but they do not know the frequency. She has not had any clearcut seizure activity. REVIEW OF SYSTEMS: Indicates the patient was diagnosed with COVID. Subsequently, she was going to have monoclonal antibodies, but then she was admitted here because of altered mental status. When she came here, she was evaluated by [facility], who recommended CT-angiogram of the head and neck as well as MRI. CT-angiogram of the head is unremarkable. MRI is still pending. She has been seen by other consultants for lymphoma. She does have some pancytopenia and she is being seen by Oncology. She has history of depression and she is also being seen by Psychiatry. This was a relevant 14-point review of systems. PAST MEDICAL HISTORY: Positive for these spells, which is going on for a long time. FAMILY HISTORY: Unremarkable. SOCIAL HISTORY: She has a supportive family and I talked to the patient's daughter as well as the patient's . PHYSICAL EXAMINATION: GENERAL: When I saw this patient, she was alert, responsive, able to follow simple and complex commands. Her mentation was back to her normal self. No meningeal sign. She moved all 4 extremities. Basically, she was back to her baseline. VITAL SIGNS: Blood pressure 119/57, respirations 16, pulse 53, temperature is 97.6. [place] [address] CONSULTATION Name: ALICIA CONWAY Room #: 170-10 ADM IN ..#: [id number] Admission: 08/17/21 Attend Phys: Akhil Melgoza MD Discharge: Date of : 45 Report #: [id number] LABORATORY DATA: White count is 3.3, platelet is down to 94. CT-angiogram is as described above. IMPRESSION AND PLAN: Not sure what these spells are. describes some spells, which can be cataplexy. I think the main thing we need to work her up is for the possibility of narcolepsy as well as the possibility of nonconvulsive seizure. We will await the MRI and once her COVID symptoms resolve or become better, we will set up that workup some time. If she has a sleep study, she should have one with sleep epilepsy montages. I discussed all of it with the patient. I spent more than 50 minutes of time taking care of this patient today and majority was spent counseling and coordinating. By: [id number] Manohar Wiseman MD /nt
--- NOTE | ~2021-08-17 | EEG ---
[facility] [place] [address] ELECTROENCEPHALOGRAM Name: ALICIA CONWAY Room #: 170-16 ADM IN M.R.#: [id number] Admission: 08/17/21 Attend Phys: Akhil Melgoza MD Discharge: Date of : 45 Report #: [id number] THIS REPORT FOR: //name// DATE OF SERVICE: 08/20/2021 This patient is being evaluated for the possibility of seizure. EEG was done by placing the electrode by standard 10-20 system of electrode placement. Both referential and sequential montages were used for recording. Background activity in this patient's EEG is about 11 Hz and 30 microvolt. The patient became drowsy that is associated with bilateral slowing. Photic stimulation is unremarkable. Throughout the record, no active epileptiform activity was noticed. IMPRESSION: This patient's EEG is unremarkable and does not demonstrate any active epileptiform activity. Thank you very much for this referral. By: [id number] Manohar Wiseman MD /nt
[~2021-08-17 12:18] MED LIST changes: +TESSALON PERLE100 MG PO; +ZOFRAN ODT4 MG PO
[2021-08-17 12:21] VITALS: BP 111/49
[2021-08-17 12:55] LABS: URINE BILIRUBIN NEGATIVE (Negative); URINE BLOOD NEGATIVE (Negative); URINE CLARITY CLEAR; URINE COLOR YELLOW; URINE GLUCOSE-RANDOM* NEGATIVE (Negative); URINE KETONES NEGATIVE (Negative); URINE LEUKOCYTES-REFLEX NEGATIVE (Negative); URINE NITRITE-REFLEX NEGATIVE (Negative); URINE PROTEIN (DIPSTICK) 2+ (Negative); URINE SPECIFIC GRAVITY >= 1.030 (1.005-1.035)
[2021-08-17 13:03] LABS: HEMOGLOBIN 11.7 gm/dL (12.0-15.0); MCH 29.4 pg (26.0-34.0); MCHC 32.6 g/dL (28.0-37.0); MCV 90.2 fL (80.0-100.0); PLATELET COUNT 96 thou/uL (150-400); RBC 3.99 mil/uL (4.20-5.00); RDW 12.9 % (10.5-14.5); WBC 2.8 thou/uL (4.0-11.0)
[2021-08-17 13:18] LABS: CALCIUM 8.4 mg/dL (8.5-10.1); POTASSIUM 3.5 mmol/L (3.5-5.1)
[2021-08-17 13:23] LABS: SQUAMOUS 0-3 Few /LPF (0-3); URINE RBC None Seen /HPF (NONE SEEN); URINE WBC-REFLEX 6-15 Few /HPF (0-5)
[2021-08-17 13:24] LABS: CRYSTALS None Seen /LPF (None Seen); HYALINE CASTS 0-3 Few /LPF (None Seen); MUCUS >6 Heavy strn/LPF (None Seen)
[2021-08-17 14:17] LABS: ALBUMIN 2.5 g/dL (3.4-5.0); DIRECT BILIRUBIN < 0.1 mg/dL (<0.1-0.2); SGOT 38 U/L (15-37); SGPT 35 U/L (30-65); TOTAL BILIRUBIN 0.2 mg/dL (0.2-1.0); TOTAL PROTEIN 5.3 g/dL (6.4-8.2)
[2021-08-17] MEDS ORDERED: ATORVASTATIN CA20 MG PO (14:29)
[2021-08-17 16:07] LABS: FOLIC ACID 55.6 ng/mL (8.6-58.9)
--- NOTE | 2021-08-17 17:22 | NUR ---
76 year old female presented to the ED on 08/16/21 per EMD as unresponsive noting had been seen on 08/12/21 in the ED diagnosed with COVID 19. NOTE per patient vaccinated in November of 2020 with Moderna. Patient lists daughter India Rodriguez at [phone] as her next of kin and is noted at alert and oriented now x4. CM will follow for discharge needs as they are identified with the care team along with therapy evaluations. CM will continue follow for discharge needs.
[2021-08-17 21:31] VITALS: BP 128/60
[2021-08-18 06:00] LABS: ABSOLUTE NEUTROPHILS 2.4 thou/uL (1.4-8.2); BASOPHILS 0.2 % (0.0-2.0); EOSINOPHILS 0.2 % (0.0-3.0); HEMATOCRIT 32.4 % (37.0-47.0); HEMOGLOBIN 10.9 gm/dL (12.0-15.0); LYMPHOCYTES 18.8 % (24.0-44.0); MCH 30.1 pg (26.0-34.0); MCHC 33.6 g/dL (28.0-37.0); MCV 89.7 fL (80.0-100.0); MONOCYTES 5.9 % (1.0-8.0); PLATELET COUNT 94 thou/uL (150-400); POLYS 74.9 % (36.0-66.0); RBC 3.62 mil/uL (4.20-5.00); WBC 3.3 thou/uL (4.0-11.0)
[2021-08-18 06:18] LABS: ALBUMIN 2.2 g/dL (3.4-5.0); CALCIUM 7.8 mg/dL (8.5-10.1); CREATININE 0.7 mg/dL (0.6-1.0); MAGNESIUM 1.5 mg/dL (1.8-2.4); POTASSIUM 3.5 mmol/L (3.5-5.1); TOTAL BILIRUBIN 0.2 mg/dL (0.2-1.0); TOTAL PROTEIN 5.4 g/dL (6.4-8.2)
[2021-08-18 06:28] VITALS: BP 132/59
[2021-08-18 08:54] LABS: % SATURATION 18 % (20-39); IRON 23 ug/dL (50-170); TIBC 126 ug/dL (250-450)
--- NOTE | 2021-08-18 10:43 | NUR ---
SPOKE WITH WINIFRED FROM [facility] AND REQUESTED MEDICAL RECORD ORDER BY DR MONTANEZ., HE SAID WILL FAX TO [facility] AND [facility]
--- NOTE | 2021-08-18 12:41 | NUR ---
DR HERNANDEZ ARRIVES AT BEDSIDE
[2021-08-18 15:09] VITALS: BP 119/57
--- NOTE | 2021-08-18 18:48 | NUR ---
END OF SHIFT NOTE: PT ALERT AND ORIENTED. ABLE TO MOVE FREELY IN BED. SB-SR ON MONITOR. PRODUCTIVE COUGH NOTED. TOLERATING NC. PURE WICK IN PLACE AND DRAINING YELLOW CLEAR URINE.
[2021-08-18 20:00] VITALS: BP 141/65
[2021-08-18] MEDS ORDERED: PRIMIDONE50 MG PO (20:41)
--- NOTE | 2021-08-19 00:28 | HC ---
[facility] [address] [place] [address] CONSULTATION Name: ALICIA CONWAY Room #: 170-10 ADM IN .R.#: [id number] Admission: 08/17/21 Attend Phys: Akhil Melgoza MD Discharge: Date of : 45 Report #: [id number] THIS REPORT FOR: cc: [facility] - Clinic physician unknown [facility] - Clinic physician unknown Sha Mccall MD ~ DATE OF SERVICE: 08/17/2021 INFECTIOUS DISEASE CONSULTATION REASON FOR CONSULTATION: I was asked to evaluate concerning COVID-19 pneumonia. HISTORY OF PRESENT ILLNESS: The patient is a 76-year-old with non-Hodgkin's lymphoma history, who has been off treatment for approximately 5 years. She is COVID vaccinated. One week ago, she developed nonproductive cough associated with headache and nausea. She presented to the Emergency Room on 08/12/2021 following a near syncopal episode. She was found to be bradycardic, given IV fluids, diagnosed with COVID-19, was discharged home for quarantining. Monoclonal antibody was arranged for today to be given at [facility]. Earlier today, however, the patient became nonverbal and brought back to the Emergency Room, symptoms did not last long and her mental status was back to baseline at presentation. She has had minimally productive cough. No pleuritic chest pain or hemoptysis. Continues to have a global headache, with no change in vision, hearing. No anosmia. No abdominal pain or diarrhea. She has had mild dysuria. No back or flank pain. No myalgias or arthralgias. Also, has generalized weakness. ALLERGIES: PENICILLIN WITH SWELLING; CEPHALEXIN WITH GI UPSET; SULFA, MEPERIDINE, PREDNISONE WITH INSOMNIA. MEDICATIONS: As noted on her MAR, which were reviewed. This includes Celexa, atorvastatin and Synthroid. PAST MEDICAL HISTORY: Arthritis and non-Hodgkin's lymphoma. FAMILY HISTORY: Negative for tuberculosis. SOCIAL HISTORY: Nonsmoker, minimal alcohol use. No tuberculosis history. She has had a previous pneumonia. No HIV risk factors. REVIEW OF SYSTEMS: A 14-point review of system was negative other than what has been described above. PHYSICAL EXAMINATION: GENERAL: She is afebrile, hemodynamically stable, now on 2 liters of oxygen per nasal cannula to maintain O2 saturation at 96%. She was alert and cooperative. [address] [address] CONSULTATION Name: ALICIA CONWAY Room #: 170-10 [facility] IN [facility].#: [id number] Admission: 08/17/21 Attend Phys: Akhil Melgoza MD Discharge: Date of : 45 Report #: [id number] She was conversant. She had fluent speech. SKIN: Without rash or decubitus. HEENT: No palpable adenopathy. Eyes without scleral icterus or conjunctivitis. Mouth without mucositis. NECK: Supple. LUNGS: Crackles heard posteriorly in the bases. HEART: Regular, without murmur, gallop or rub. ABDOMEN: Soft and nontender with no hepatosplenomegaly or mass appreciated. No CVA tenderness. BACK: No spinal tenderness. EXTREMITIES: Without clubbing, cyanosis or edema. GENITORECTAL: Not performed. NEUROLOGIC: Mood without anxiety or depression. Laboratory reviewed. Microbiology reviewed. CT angiography of the chest reviewed, noting superior mediastinal, bilateral supraclavicular and bilateral cervical adenopathy, patchy ground glass opacities in the upper lungs consistent with multifocal pneumonitis. CT of the head, no acute changes. IMPRESSION: COVID-19 pneumonia with respiratory failure, now on 2 liters of oxygen per nasal cannula. She has non-Hodgkin's lymphoma, currently no treatment and do not know current stage of disease. She does have cystitis and pancytopenia with transient encephalopathy. RECOMMENDATION: We will continue combination of anti-inflammatory and antiviral therapy. Continue with antibiotics until cultures are back. We will treat for both pneumonitis and cystitis. We have Neurology evaluate for transient encephalopathy. MRI scan may be necessary. Would also have the patient follow up with Oncology, who helped me correctly stage her disease. In case she worsened, may need to increase her immunosuppression. This was discussed with the patient in detail who was agreeable to plan of care. <ELECTRONICALLY SIGNED> By: Sha Mccall MD 08/19/21 0028 [id number] [id number] Sha Mccall MD /nt
[2021-08-19 05:17] VITALS: BP 137/66
[2021-08-19 05:49] LABS: ABSOLUTE NEUTROPHILS 2.6 thou/uL (1.4-8.2); BASOPHILS 0.2 % (0.0-2.0); EOSINOPHILS 0.4 % (0.0-3.0); HEMATOCRIT 34.7 % (37.0-47.0); HEMOGLOBIN 11.2 gm/dL (12.0-15.0); LYMPHOCYTES 22.7 % (24.0-44.0); MCH 29.2 pg (26.0-34.0); MCHC 32.4 g/dL (28.0-37.0); MCV 90.1 fL (80.0-100.0); MONOCYTES 6.7 % (1.0-8.0); PLATELET COUNT 123 thou/uL (150-400); RBC 3.84 mil/uL (4.20-5.00); RDW 13.5 % (10.5-14.5); WBC 3.7 thou/uL (4.0-11.0)
[2021-08-19 06:20] LABS: ALBUMIN 2.2 g/dL (3.4-5.0); CREATININE 0.7 mg/dL (0.6-1.0); POTASSIUM 3.7 mmol/L (3.5-5.1); TOTAL BILIRUBIN 0.2 mg/dL (0.2-1.0); TOTAL PROTEIN 5.3 g/dL (6.4-8.2)
--- NOTE | 2021-08-19 06:30 | HC ---
[facility] [place] [address] CONSULTATION Name: ALICIA CONWAY Room #: 170-10 ADM IN M.R.#: [id number] Admission: 08/17/21 Attend Phys: Akhil Melgoza MD Discharge: Date of : 45 Report #: [id number] THIS REPORT FOR: cc: [facility] - Clinic physician unknown [facility] - Clinic physician unknown Efrain Bose MD ~ cc: Sara Arceo APRN, Catherine Cosme MD, Sha Mccall MD, Hayden Keane REASON FOR CONSULTATION: History of lymphoma and now COVID admission. HISTORY OF PRESENT ILLNESS: The patient is a pleasant 76-year-old female seen in ER-OB, who was diagnosed with COVID positive, respiratory illness about 08/12/2021 at [facility]. She was sent home for symptomatic management. She was minimally symptomatic and unfortunately she worsened. I believe she might have been scheduled per the notes for monoclonal antibodies, but I do not think that was yet started. She had some mental status changes at home and was brought to the hospital for further evaluation. Reportedly, she has been nonverbal at home, but is back to normal now. She is also COVID positive. X-ray has some bilateral pulmonary changes consistent with that. The patient self reports she has a history of lymphoma. It sounds like it is a follicular lymphoma diagnosed a number of years back. At one time in the past, she received rituximab with some benefit. Then, she had progression. It sounds like she also was briefly on ibrutinib for 6 weeks, but it sounds like it might have been several years ago. She has not been on anything. Lately, she has been on observation with Dr. Hayden Keane up at the [facility]. Previous to the last month, she has not had any unusual fevers, chills, nausea, vomiting, swallowing difficulties, headaches, sinus difficulties, mouth sores, recurrent infections requiring antibiotics, significant weight change, diarrhea, constipation, blood in her urine or stool, occasional dysuria. No skin rash. More recently as mentioned above, she had the recent cough and feeling tired and had been COVID positive like I said about 08/12/2021, had been sent back to home quarantine with her . Note that she is vaccinated, but did not have the booster shot as that was due about this time. PAST MEDICAL HISTORY: Notable for history of what sounds like low grade/follicular lymphoma from a number of years back, also arthritis, hypothyroidism, mood disorder to some degree. FAMILY HISTORY: Noncontributory. 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 I believe she is a nonsmoker, minimal alcohol. [facility] [address] [place] [address] CONSULTATION Name: ALICIA CONWAY Room #: 170-10 [facility] IN M.R.#: [id number] Admission: 08/17/21 Attend Phys: Akhil Melgoza MD Discharge: Date of : 45 Report #: [id number] IMAGING: Done here has included a chest x-ray. There are patchy bilateral ground glass infiltrates identified. She has also had a CTA head and neck that showed that the cerebral arteries all appear to be patent. Difficult to assess because of some technical difficulties. The patient also had superior mediastinal, bilateral supraclavicular, and bilateral cervical adenopathy of indeterminate origin. They also saw the upper part of the lung with patchy ground glass opacities in the upper lung suggesting multifocal pneumonitis. CT head, no acute intracranial abnormality. LABORATORY DATA: Here notable for creatinine of 0.7. Electrolytes essentially unremarkable. AST slightly elevated at 41, had been 31 on the 08/12. Total bilirubin 0.2. Magnesium slightly low at 1.5, alk phos low at 22, ALT normal at 35. Albumin low at 2.2, had been 3.5 a week ago. Lactic acid 1.0. CRP on 08/18/2021 was 113, elevated. D-dimer elevated at 0.61. Recent white count 3.3, had been 5.2 a week ago. Hemoglobin 10.9, MCV 89.7, platelets 94, had been 149 on 08/12/2021, had been 138 back in 04/2018. ANC recently 2400, had been 4100 on the . Sed rate elevated at 39. Vitamin B12 elevated at 3104. Folate 55.6. TSH 2.215. COVID is positive as it was on 08/12/2021. UA did show some white cells and bacteria, a few squamous cells and some mucus. PHYSICAL EXAMINATION: VITAL SIGNS: Height is 5 feet 4 or 162.6 cm, weight is 174 pounds or 78.9 kilograms. Recent blood pressure is 132/59, O2 sat is 94%, pulse 59, temperature 98. MOOD: She is pleasant, conversant. NEUROLOGIC: Speech and thought pattern seemed mostly normal at this time, though consistent with a tired female, who is 76 years old. NECK: The patient does have some slightly enlarged lymph nodes in the cervical supraclavicular region. I do not detect on any of the axillary or groin. ABDOMEN: Without masses. Slightly obese. EXTREMITIES: Without significant clubbing, cyanosis, or edema. SKIN: Appears to be warm and intact. No unusual rash or ulcerations, very unusual ecchymosis noted. HEART: Regular rate. LUNGS: Do have some very soft rhonchi with cough, MEDICATIONS: At this time in the hospital include cholecalciferol 2000 units daily, zinc 220 mg daily, azithromycin 500 mg daily, pantoprazole 40 daily, MiraLax 17 grams daily, vitamin C 1000 b.i.d., guaifenesin 1200 b.i.d., ceftriaxone 1 gram daily, ipratropium, albuterol respiratory therapy q. 4 hours while awake, dexamethasone 6 mg daily IV, Tylenol p.r.n., Zofran p.r.n. I think she got 1 dose of remdesivir. I am not sure if this has been continued. ASSESSMENT AND PLAN: [address] [address] CONSULTATION Name: ALICIA CONWAY Room #: 170-10 ADM IN .R.#: [id number] Admission: 08/17/21 Attend Phys: Akhil Melgoza MD Discharge: Date of : 45 Report #: [id number] 1. 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 We will try to get records from Dr. Hayden Keane. At this time, the patient does not have progressive disease. We will also ask for recent imaging reports from Dr. Keane's office. 2. Infection risk. The patient does not report any recent increased bacterial infections or unusual infections requiring antibiotics. This would suggest immune system is compromised and has not greatly so. We will check IgG level. 3. COVID positive pneumonitis and possible superinfection, defer Zithromax, ceftriaxone, and dexamethasone, and other anti-infective to others. 4. History of hypothyroid, continue replacement. 5. Mental status changes. Defer to Psychiatry and other see the patient. 6. Protein-calorie malnutrition. Defer to others. Probably will need supplements. 7. Anemia. We will check iron, appears the B12 and folate are replete. We will follow with you. <ELECTRONICALLY SIGNED> By: Efrain Bose MD 08/19/21 0630 [id number] [id number] Efrain Bose MD /nt
[2021-08-19 08:23] VITALS: BP 132/61
--- NOTE | 2021-08-19 08:42 | NUR ---
VM ON CASE MANAGEMENT LINE THIS AM FROM SPOUSE PURVI CONWAY INDICATING NEEDS UPDATE ON SPOUSE'S CONDITION AND [facility] DOES NOT HAVE ACCURATE CONTACT # FOR HIM. HIS NUMBER IS [phone] AND THIS WAS CALLED TO [employer] AND MESSAGED TO DR. HINDS WITH REQUEST FOR HIM TO CALL SPOUSE WITH PT UPDATE.
[2021-08-19 10:08] LABS: HIV ANTIBODY Non Reactive (Non Reactive)
[2021-08-19 12:10] VITALS: BP 130/52
[2021-08-19 22:08] VITALS: BP 123/53
[2021-08-20] VITALS (7 sets, daily range): BP systolic 000–155; BP diastolic 000–80
--- NOTE | 2021-08-20 12:04 | NUR ---
Case opened to follow. Pt remains in enhanced ISO for covid. She did have the moderna vaccine in the Spring. She lives with her spouse and has 4 steps to enter their single story home. [employer] spoke with her spouse Garcia and he reports she is normally indep with gait and adl's. She has a rwalker but normally does not use it. No other dme hx, no hh or snf hx either. Cm role introduced and support provided. Pt likely to tx to 3w later today when a bed opens up. Pt's spouse informed. Pt has a hx of lymphoma and is being seen by neuro, onc and ID. PT/OT evals in progress. Pt now down to 4liters of o2 after being on 7-8 liters overnight. Spouse's number is [phone], dtr [place] is [phone]. Pt's pcp is Dr Hansen at [facility]. Support provided. Will follow along for possible hh/home o2 referral at [place]. and hx of lymphoma.
[2021-08-20 15:39] LABS: T-SPOT.TB Negative
--- NOTE | 2021-08-20 18:32 | NUR ---
PATIENT ADMIT TO UNIT FROM ER. A/O X4. ON 3L/NC, HARD HEARING. WILL KEEP MONITOR,
--- NOTE | 2021-08-20 22:34 | NUR ---
PT RESTING IN BED. O2 PER NC. LUNGS CRACKLES IN BASES. PT WATCHING TV. DISCUSSED HUNGRY BUT THEN NAUSEAUS, PRN PROVIDED AND HS SNACK PROVIDED. PT REQUESTING PURWICK AND PULL UP VERSUS USE OF BATHROOM. REPORTS CHRONIC BACK NECK AND SHOULDER PAIN. PRN PAIN PROVIDED. PT CALLS FOR ASSIST.
[2021-08-21 02:55] LABS: ABSOLUTE NEUTROPHILS 3.1 thou/uL (1.4-8.2); BASOPHILS 0.2 % (0.0-2.0); EOSINOPHILS 1.9 % (0.0-3.0); HEMATOCRIT 32.5 % (37.0-47.0); HEMOGLOBIN 10.8 gm/dL (12.0-15.0); LYMPHOCYTES 17.3 % (24.0-44.0); MCH 29.9 pg (26.0-34.0); MCHC 33.3 g/dL (28.0-37.0); MCV 89.7 fL (80.0-100.0); MONOCYTES 7.1 % (1.0-8.0); PLATELET COUNT 156 thou/uL (150-400); POLYS 73.5 % (36.0-66.0); RBC 3.62 mil/uL (4.20-5.00); RDW 13.2 % (10.5-14.5); WBC 4.2 thou/uL (4.0-11.0)
[2021-08-21 03:11] LABS: ALBUMIN 2.1 g/dL (3.4-5.0); ANION GAP 6 mmol/L (7-16); BUN 11 mg/dL (7-18); CALCIUM 8.1 mg/dL (8.5-10.1); CHLORIDE 106 mmol/L (98-107); CO2 30 mmol/L (21-32); CREATININE 0.7 mg/dL (0.6-1.0); DIRECT BILIRUBIN < 0.1 mg/dL (<0.1-0.2); GLUCOSE 109 mg/dL (74-106); PHOSPHORUS 3.5 mg/dL (2.5-4.9); POTASSIUM 3.8 mmol/L (3.5-5.1); SGOT 42 U/L (15-37); SGPT 34 U/L (30-65); SODIUM 142 mmol/L (136-145); TOTAL BILIRUBIN 0.3 mg/dL (0.2-1.0); TOTAL PROTEIN 5.1 g/dL (6.4-8.2)
[2021-08-21 03:12] VITALS: BP 146/68
[2021-08-21 07:06] VITALS: BP 144/71
--- NOTE | 2021-08-21 14:58 | NUR ---
SW reviewed chart and spoke with nursing and attending physician. Pt remains in Enhanced Isolation due to COVID. Pt is afebrile and on 2L of O2. Pt is on IV abx/IV steroids. Pt is completing course of Remdesivir. Therapy evals ordered. No weekend discharge planned. Will need insurance auth for post-acute placement. [facility] is following to assist as needed with discharge planning.
[2021-08-21 15:10] VITALS: BP 136/65
--- NOTE | 2021-08-21 17:22 | NUR ---
ASSUMED PATIENT CARE AT 0700. A/O X4. ANXIOUS. CARDIZEN GTT OFF AT 1000. AFIB ON MONITOR. DENIES CHEST PAIN. TOLERATED ON RA. PROGRESSING TOWARDS POC GOALS.
--- NOTE | 2021-08-21 18:09 | NUR ---
ASSUMED PATIENT CARE AT 0700. A/O X4. HARD HEARING. GENERLIZED WEAKNEE. ON 3L/NC. SLOWLY TOWARDS POC GOALS.
[2021-08-21 19:15] VITALS: BP 142/68
--- NOTE | 2021-08-21 21:50 | NUR ---
PT WATCHING TV. PURWICK INTACT. NC, LUNGS DIMINISHED. PT CONTINUES TO REPORT NAUSEA AND CHRONIC BACK PAIN, PRNS PROVIDED. PT HAD SNACK. PT CALLS FOR ASSIST.
[2021-08-22 04:20] VITALS: BP 137/67
[2021-08-22 07:36] VITALS: BP 146/76
[2021-08-22 11:19] VITALS: BP 149/76
[2021-08-22 16:28] VITALS: BP 150/68
--- NOTE | 2021-08-22 16:39 | NUR ---
RN ASSUMED PT'S CARE AT 0700AM, PT IS A&OX4, BUT PT IS H&H, PT IS ON O2 2-3L/MIN/NC, PT'S O2SAT AND VS ARE STABLE BY THIS TIME, PT IS CONTINUING PO ABX AND TREAT COVID MEDICATIONS, PT STILL HAS N/V SOMETIME, PT DENIES PAIN BY THIS TIME.
[2021-08-22 19:25] VITALS: BP 153/74
--- NOTE | 2021-08-23 03:34 | NUR ---
Pt. rested quietly at intervals during the night when checked on during frequent rounds. She c/o nausea and prn zofran given (see emar) with relief. Pt. also c/o a headache and tylenol also given (see emar) with some relief. Has a dry non-productive cough and head of the bed elevated.
[2021-08-23 04:26] VITALS: BP 147/61
[2021-08-23 05:33] LABS: ABSOLUTE NEUTROPHILS 3.3 thou/uL (1.4-8.2); BASOPHILS 0.2 % (0.0-2.0); EOSINOPHILS 2.3 % (0.0-3.0); HEMOGLOBIN 10.9 gm/dL (12.0-15.0); LYMPHOCYTES 19.4 % (24.0-44.0); MCH 29.2 pg (26.0-34.0); MCHC 32.9 g/dL (28.0-37.0); MCV 88.8 fL (80.0-100.0); MONOCYTES 8.7 % (1.0-8.0); POLYS 69.4 % (36.0-66.0); RBC 3.72 mil/uL (4.20-5.00); RDW 13.2 % (10.5-14.5); WBC 4.7 thou/uL (4.0-11.0)
[2021-08-23 05:39] LABS: PLATELET COUNT 237 thou/uL (150-400)
[2021-08-23 05:58] LABS: ALBUMIN 2.1 g/dL (3.4-5.0); CALCIUM 8.2 mg/dL (8.5-10.1); CREATININE 0.7 mg/dL (0.6-1.0); MAGNESIUM 1.6 mg/dL (1.8-2.4); PHOSPHORUS 3.1 mg/dL (2.6-4.7); POTASSIUM 3.1 mmol/L (3.5-5.1); TOTAL BILIRUBIN 0.4 mg/dL (0.2-1.0); TOTAL PROTEIN 5.2 g/dL (6.4-8.2)
[2021-08-23 07:03] VITALS: BP 148/70
--- NOTE | 2021-08-23 15:58 | NUR ---
0710 received report from night nurse. FULL CODE, admit on 08/17 for Covid, "not responding to verbal commands" Pt is from home, A&O x 4, [place], 2-3L NC, diminished lung sounds, c/o headache and nausea. Nausea is chronic and GI is consulted. pt is up 1:1 BSC, purewick in place. no skin issues, IV in the Right wrist, saline locked. CXR this AM. pt calls out appropriately.
[2021-08-23 19:10] VITALS: BP 153/64
[2021-08-24 04:00] VITALS: BP 132/67
--- NOTE | 2021-08-24 06:00 | NUR ---
PT IS [place] AND IT CREATES SOME ANXIETY. PT HAS CONCERNS OF WHEN SHE WILL GO HOME. SPOKE TO HER ABOUT POC WITH COVID AND THAT DETERMINATION IS UP TO PULM, ID, AND THE HOSPITALIST. EXTERNAL CATH IN PLACE. COMPLAINTS OF HEADACHE AND NOT GETTING ENOUGH SLEEP. RX OF BENADRYL X1. CALL LIGHT WITHIN REACH.
[2021-08-24 07:39] VITALS: BP 149/79
--- NOTE | 2021-08-24 09:59 | NUR ---
Assess for length of stay. COVID+ pneumonia. Unable to visit with pt due to isolation precautions and pt [place] so not answer phone. Spoke with RN who indicated pt tolerating diet without issue and pt aware of multiple food allergies indicated. No wt loss. Presents low nutrition risk and RN indicated possible discharge today.
[2021-08-24 12:20] LABS: BASOPHILS 0.2 % (0.0-2.0); EOSINOPHILS 1.9 % (0.0-3.0); HEMATOCRIT 36.1 % (37.0-47.0); HEMOGLOBIN 11.7 gm/dL (12.0-15.0); LYMPHOCYTES 5.2 % (24.0-44.0); MCH 29.1 pg (26.0-34.0); MCHC 32.4 g/dL (28.0-37.0); MCV 89.8 fL (80.0-100.0); MONOCYTES 4.6 % (1.0-8.0); PLATELET COUNT 275 thou/uL (150-400); POLYS 88.1 % (36.0-66.0); RBC 4.02 mil/uL (4.20-5.00); RDW 13.5 % (10.5-14.5); WBC 6.8 thou/uL (4.0-11.0)
[2021-08-24] MEDS ORDERED: VITAMIN D325 MC2 PO (12:42)
[2021-08-24] MEDS ORDERED: MUCINEX600 MG PO (12:42)
[2021-08-24] MEDS ORDERED: PREDNISONE 20 M20 M1 PO (12:42)
[2021-08-24] MEDS ORDERED: CEFDINIR300 MG PO (12:42)
[2021-08-24 12:43] LABS: CALCIUM 8.9 mg/dL (8.5-10.1); CREATININE 0.9 mg/dL (0.6-1.0); POTASSIUM 3.7 mmol/L (3.5-5.1)
[2021-08-24 14:31] VITALS: BP 149/79
[2021-08-24] MEDS ORDERED: OXYGEN MISCELL (14:34)
--- NOTE | 2021-08-24 14:44 | NUR ---
DISCHARGE NOTE: KUSHAL reviewed chart and spoke with nursing and attending physician. Pt remains in Enhanced Isolation due to COVID. Pt is afebrile and on 1L of O2. Pt is on IV steroids. Rest/exercise oximetry completed today. Pt does qualify for 2L of O2 with activity. Pt is medically stable for discharge home today. Recommendation for pt to have HH services. KUSHAL spoke with pt via phone to discuss discharge plan. Pt is aware and agreeable with HH and Home O2 referral. Options provided. No preference voiced. KUSHAL confirmed pt's home address and phone number. Pt's PCP is DR. Maegan Merino at [facility]. KUSHAL spoke with pt's spouse via phone to also provide update and notify of pt's discharge. Pt's spouse will provide transportation home. Awaiting final discharge orders/summary at this time. KUSHAL faxed HH referral to [facility] and [facility] referral to [facility]. Notified liaisons. Contact info for and [facility] placed in pt's discharge summary. KUSHAL is following to finalize discharge.
--- NOTE | 2021-08-24 15:56 | NUR ---
PT DISCHARGED HOME WITH ALL BELONGINGS. PT SENT HOME WITH HOME HEALTH AND HOME OXYGEN. HOME HEALTH TO FOLLOW UP
== END 2021-08-24 15:56 | disposition home health service (06) | DRG 177 ==
LOC: ER 12:18 → EROBS 14:55 → 3W 14:55 → EROBS 08-20 04:39 → 3W 08-20 15:28
PROVIDERS: Emergency Medicine; Internal Medicine; Internal Medicine Hematology & Oncology; Nurse Practitioner; Specialist; ADMIT Internal Medicine; ATTEND Internal Medicine
PROC: XW033E5 Introduction of Remdesivir Anti-infective into Peripheral Vein, Percutaneous Approach, New Technology Group 5 (ICD-10-PCS; principal; 2021-08-17)
DX: U07.1 COVID-19 (principal); J12.82 Pneumonia due to coronavirus disease 2019; G92.9 Unspecified toxic encephalopathy; E43 Unspecified severe protein-calorie malnutrition; J80 Acute respiratory distress syndrome; D61.818 Other pancytopenia; C81.90 Hodgkin lymphoma, unspecified, unspecified site; N39.0 Urinary tract infection, site not specified; E03.9 Hypothyroidism, unspecified; M19.90 Unspecified osteoarthritis, unspecified site; F32.9 Major depressive disorder, single episode, unspecified; R53.81 Other malaise; R41.0 Disorientation, unspecified; D50.9 Iron deficiency anemia, unspecified; R59.1 Generalized enlarged lymph nodes; E87.6 Hypokalemia; Z88.0 Allergy status to penicillin; Z88.2 Allergy status to sulfonamides; Z88.8 Allergy status to other drugs, medicaments and biological substances; Z68.33 Body mass index [BMI] 33.0-33.9, adult
CPT/HCPCS: 10080